=== PATIENT | female | born 1950 | race Caucasian/White ===

== ENCOUNTER 2023-08-13 08:50 | Day surgery (SDC) | payer MEDICARE, OTHER ==
[~2023-08-13 08:50] MED LIST: Lactated Ringers 1,000 ML IV PRN
[2023-08-13] MEDS ORDERED: Sodium Chloride 0.9% 10 ML Syringe IV ONE (08:51)
[2023-08-13] MEDS ORDERED: fentaNYL 100 MCG/2 ML SDV IV ONE (08:51)
[2023-08-13] MEDS ORDERED: Midazolam 1 MG/ML 2 ML SDV IV ONE (08:51)
[2023-08-13] MEDS: Sodium Chloride 0.9% 10 ML Syringe FLUSH PRN (09:48)
[2023-08-13] MEDS: acetaZOLAMIDE 500 MG Cap.ER PO ONE (11:29)
[2023-08-13 14:30] VITALS: BP 131/84; PULSE 67
== END 2023-08-13 11:53 | disposition home or self-care (01) ==
LOC: FB.SDS 08:50
PROVIDERS: ATTEND Ophthalmology
DX: H25.9 Unspecified age-related cataract (principal); K21.9 Gastro-esophageal reflux disease without esophagitis; F33.9 Major depressive disorder, recurrent, unspecified; Z79.82 Long term (current) use of aspirin; Z79.899 Other long term (current) drug therapy; Z91.030 Bee allergy status; Z88.5 Allergy status to narcotic agent
CPT/HCPCS: 66984; A9270; J2250; J3010; J3490; V2632; 00142; 99100